=== PATIENT | female | born 1970 | race Caucasian/White ===

== ENCOUNTER 2017-09-29 08:07 | Emergency (ER) | payer SELFPAY ==
[2017-09-29] MEDS ORDERED: ASPIRIN 81 MG TABLET, CHEWABLE PO ONE (08:47)
[2017-09-29] MEDS ORDERED: CLONIDINE HCL 0.2 MG TABLET PO ONE (08:48)
--- NOTE | 2017-09-29 08:52 | ER Document Report ---
ED General - General Chief Complaint: Neck Problem Stated Complaint: NECK PAIN Time Seen by Provider: 09/29/17 08:42 TRAVEL OUTSIDE OF THE [place] IN LAST 30 DAYS: No - HPI Notes: 47 years old female with a history of high blood pressure, not been taking any medications presents today with left-sided chest wall pain as well as left- sided neck pain for the last 2 days. This morning the pain was more than usual therefore came to the ED. Denies any left arm numbness tingling sensation nausea vomiting palpitation or diaphoresis. Change of position and movement of the neck increases the pain. - Related Data Allergies/Adverse Reactions: codeine Allergy (Verified 09/29/17 08:10) Home Medications: Current Home Medications Lorazepam [Ativan 0.5 mg Tablet] 0.5 mg PO Q4 PRN 09/29/17 [History] Mv-Min/Iron/Folic/Calcium/Vitk [Women's Daily Formula Tablet] 1 each PO DAILY [History] Past Medical History - General Information source: Patient - Social History Smoking Status: Current Every Day Smoker Frequency of alcohol use: Social Drug Abuse: None Lives with: Family Family History: Reviewed & Not Pertinent - Past Medical History Cardiac Medical History: Reports: None Denies: Hx Atrial Fibrillation, Hx Congestive Heart Failure, Hx Coronary Artery Disease, Hx DVT, Hx Heart Attack, Hx Hypercholesterolemia, Hx Hypertension, Hx Peripheral Vascular Disease, Hx Pulmonary Embolism, Hx Heart Murmur, Other Pulmonary Medical History: Reports: None Denies: Hx Asthma, Hx Bronchitis, Hx COPD, Hx Pneumonia, Hx Intubation, Hx Respiratory Failure, Hx Sleep Apnea, Hx Tuberculosis, Other EENT Medical History: Reports: None Denies: Eyes, Ears, Nose, Throat, Other Neurological Medical History: Reports: None. Denies: Hx Cerebrovascular Accident, Hx Migraine, Hx Seizures, Other Endocrine Medical History: Reports: None. Denies: Hx Diabetes Mellitus Type 1, Hx Diabetes Mellitus Type 2, Hx Graves' Disease, Hx Hyperthyroidism, Hx Hypothyroidism, Other Renal/ Medical History: Reports: None. Denies: Hx Ectopic , Hx End Stage Renal Disease, Hx Hemodialysis, Hx Hydrocele, Hx Kidney Stones, Hx Ovarian Cysts, Hx Peritoneal Dialysis, Hx Pelvic Inflammatory Disease, Hx Renal Insufficiency, Hx Varicocele, Other Review of Systems - Review of Systems Notes: REVIEW OF SYSTEMS: CONSTITUTIONAL : Denies fever, chills, or sweats. Denies recent illness. EENT: Denies eye, ear, throat, or mouth pain or symptoms. Denies nasal or sinus congestion or discharge. Denies throat, tongue, or mouth swelling or difficulty swallowing. CARDIOVASCULAR: Denies chest pain. Denies palpitations or racing or irregular heart beat. Denies ankle edema. RESPIRATORY: Denies cough, cold, or chest congestion. Denies shortness of breath, difficulty breathing, or wheezing. GASTROINTESTINAL: Denies abdominal pain or distention. Denies nausea, vomiting , or diarrhea. Denies blood in vomitus, stools, or per rectum. Denies black, tarry stools. Denies constipation. GENITOURINARY: Denies difficulty urinating, painful urination, burning, frequency, blood in urine, or discharge. FEMALE GENITOURINARY: Denies vaginal bleeding, heavy or abnormal periods, irregular periods. Denies vaginal discharge or odor. MUSCULOSKELETAL: As per history of complain SKIN: Denies rash, lesions or sores. HEMATOLOGIC : Denies easy bruising or bleeding. LYMPHATIC: Denies swollen, enlarged glands. NEUROLOGICAL: Denies confusion or altered mental status. Denies passing out or loss of consciousness. Denies dizziness or lightheadedness. Denies headache. Denies weakness or paralysis or loss of use of either side. Denies problems with gait or speech. Denies sensory loss, numbness, or tingling. Denies seizures. PSYCHIATRIC: Denies anxiety or stress. Denies depression, suicidal ideation, or homicidal ideation. ALL OTHER SYSTEMS REVIEWED AND NEGATIVE. PHYSICAL EXAMINATION: GENERAL: Well-appearing, well-nourished and in no acute distress. HEAD: Atraumatic, normocephalic. EYES: Pupils equal round and reactive to light, extraocular movements intact, conjunctiva are normal. ENT: Nares patent, oropharynx clear without exudates. Moist mucous membranes. NECK: Normal range of motion, supple without lymphadenopathy LUNGS: Breath sounds clear to auscultation bilaterally and equal. No wheezes rales or rhonchi. HEART: Regular rate and rhythm without murmurs ABDOMEN: Soft, nontender, nondistended abdomen. No guarding, no rebound. No masses appreciated. Female : deferred Musculoskeletal: Chest wall tenderness noted .normal range of motion, no pitting or edema. No cyanosis. NEUROLOGICAL: Cranial nerves grossly intact. Normal speech, normal gait. Normal sensory, motor exams PSYCH: Normal mood, normal affect. SKIN: Warm, Dry, normal turgor, no rashes or lesions noted. Dictation was performed using [employer] voice recognition software Physical Exam - Vital signs Vitals: Temp Pulse Resp BP Pulse Ox 98.2 F 66 16 217/116 H 100 09/29/17 08:19 09/29/17 08:19 09/29/17 08:19 09/29/17 08:19 09/29/17 08:19 Course - Vital Signs Vital signs: Temp Pulse Resp BP Pulse Ox 98.2 F 66 16 217/116 H 100 09/29/17 08:19 09/29/17 08:19 09/29/17 08:19 09/29/17 08:19 09/29/17 09:00 - Laboratory Result Diagrams: 09/29/17 08:56 09/29/17 08:56 - Diagnostic Test Radiology results interpreted by me: 09/29/17 10:08 Diagnostic report text EXAM DESCRIPTION: CHEST SINGLE VIEW COMPLETED DATE/TIME: 09/29/2017 9:16 am REASON FOR STUDY: Chest pain COMPARISON: None. EXAM PARAMETERS: NUMBER OF VIEWS: One view. TECHNIQUE: Single frontal radiographic view of the chest acquired. RADIATION DOSE: NA LIMITATIONS: None. FINDINGS: LUNGS AND PLEURA: No opacities, masses or pneumothorax. No pleural effusion. MEDIASTINUM AND HILAR STRUCTURES: No masses. Contour normal. HEART AND VASCULAR STRUCTURES: Heart normal in size. Normal vasculature. BONES: No acute findings. HARDWARE: None in the chest. OTHER: No other significant finding. IMPRESSION: NO ACUTE RADIOGRAPHIC FINDING IN THE CHEST. TECHNICAL DOCUMENTATION: JOB ID: [id number]- All Rights Reserved Dictated by: LILLIAN HARDY MD 6 - EKG Interpretation by Nm EKG shows normal: Sinus rhythm Rate: Normal Rhythm: NSR Additional EKG results interpreted by me: 09/29/17 10:09 Sinus rhythm at 70 60 bpm left axis, no acute ST elevation ST depression T-wave inversion noted. Discharge - Discharge Clinical Impression: Anterior chest wall pain Acute neck sprain Qualifiers: Encounter type: initial encounter Qualified Code(s): S13.9XXA - Sprain of joints and ligaments of unspecified parts of neck, initial encounter Hypertension Qualifiers: Hypertension type: essential hypertension Qualified Code(s): I10 - Essential ( primary) hypertension Disposition: HOME, SELF-CARE Instructions: Chest Wall Pain ([facility]), Aspirin (Cardiac) ([facility]) Prescriptions: Diclofenac Sodium 50 mg PO BID #30 tablet. Lisinopril/Hydrochlorothiazide [Lisinopril-Hctz 10-12.5 mg Tab] 1 each PO DAILY #30 tablet Lorazepam 1 mg PO BID #10 tablet Referrals: [facility] [Provider Group] - Follow up as needed
[2017-09-29 09:15] LABS: ABSOLUTE EOSINOPHILS # (AUTO) 0.1 10^3/uL (0.0-0.6); ABSOLUTE MONOCYTES (AUTO) 0.7 10^3/uL (0.1-1.4); ABSOLUTE NEUT (AUTO) 4.9 10^3/uL (1.7-8.2); BASOPHILS % (AUTO) 0.3 % (0-2); HEMOGLOBIN 15.1 g/dL (12.0-15.5); HGB HCT DIFFERENCE 2.3; LYMPHOCYTES % (AUTO) 15.1 % (13-45); MEAN CORPUSCULAR HEMOGLOBIN 32.1 pg (27.0-33.4); MEAN CORPUSCULAR VOLUME 92 fl (80-97); RED BLOOD COUNT 4.69 10^6/uL (3.72-5.28); RED CELL DISTRIBUTION WIDTH 12.8 % (11.5-14.0); SEGMENTED NEUTROPHILS % (AUTO) 73.6 % (42-78); WHITE BLOOD COUNT 6.7 10^3/uL (4.0-10.5)
--- NOTE | 2017-09-29 09:25 | RADIOLOGY REPORT (SQ) ---
EXAM DESCRIPTION: CHEST SINGLE VIEW COMPLETED DATE/TIME: 09/29/2017 9:16 am REASON FOR STUDY: Chest pain COMPARISON: None. EXAM PARAMETERS: NUMBER OF VIEWS: One view. TECHNIQUE: Single frontal radiographic view of the chest acquired. RADIATION DOSE: NA LIMITATIONS: None. FINDINGS: LUNGS AND PLEURA: No opacities, masses or pneumothorax. No pleural effusion. MEDIASTINUM AND HILAR STRUCTURES: No masses. Contour normal. HEART AND VASCULAR STRUCTURES: Heart normal in size. Normal vasculature. BONES: No acute findings. HARDWARE: None in the chest. OTHER: No other significant finding. IMPRESSION: NO ACUTE RADIOGRAPHIC FINDING IN THE CHEST. TECHNICAL DOCUMENTATION: JOB ID: [id number] [employer]- All Rights Reserved
[2017-09-29 09:38] LABS: ALANINE AMINOTRANSFERASE 31 U/L (9-52); ALBUMIN 4.4 g/dL (3.5-5.0); ALKALINE PHOSPHATASE 67 U/L (38-126); ANION GAP 12 (5-19); ASPARTATE AMINO TRANSFERASE 34 U/L (14-36); BILIRUBIN,DIRECT 0.4 mg/dL (0.0-0.4); BILIRUBIN,TOTAL 0.6 mg/dL (0.2-1.3); BLOOD UREA NITROGEN 12 mg/dL (7-20); CALCIUM 9.5 mg/dL (8.4-10.2); CARBON DIOXIDE 25 mmol/L (22-30); CHLORIDE 105 mmol/L (98-107); CREATINE KINASE 30 U/L (30-135); CREATININE RESULT 0.76 mg/dL (0.52-1.25); GLUCOSE 90 mg/dL (75-110); POTASSIUM 4.2 mmol/L (3.6-5.0); SODIUM 141.9 mmol/L (137-145); TOTAL PROTEIN 7.9 g/dL (6.3-8.2)
[2017-09-29 09:47] LABS: CREATINE KINASE MB 0.43 ng/mL (<4.55)
[2017-09-29 09:49] LABS: TROPONIN I < 0.012 ng/mL
[2017-09-29 10:37] VITALS: BP 141/95
--- NOTE | 2017-09-29 11:20 | EKG REPORT ---
SEVERITY:- ABNORMAL ECG - SINUS RHYTHM LVH BY VOLTAGE CONSIDER ANTEROSEPTAL INFARCT : Confirmed by: Wilton Silveira 29-Sep-2017 11:19:39
== END 2017-09-29 10:36 | disposition home or self-care (01) ==
LOC: ER 08:07
DX: S13.9XXA Sprain of joints and ligaments of unspecified parts of neck, initial encounter (principal); R07.89 Other chest pain; M54.2 Cervicalgia; X58.XXXA Exposure to other specified factors, initial encounter; F17.200 Nicotine dependence, unspecified, uncomplicated; Z88.6 Allergy status to analgesic agent
CPT/HCPCS: 36415; 71010; 80053; 82550; 82553; 84484; 85025; 93005; 93010; 99284

== ENCOUNTER 2017-11-05 12:03 | Emergency (ER) | payer SELFPAY ==
[2017-11-05] MEDS ORDERED: ALBUTEROL SULFATE 0.083% NEB 2.5 MG/3 ML AMPUL NEB ONE (13:12)
--- NOTE | 2017-11-05 14:02 | RADIOLOGY REPORT (SQ) ---
EXAM DESCRIPTION: CHEST PA/LAT COMPLETED DATE/TIME: 11/05/2017 1:48 pm REASON FOR STUDY: cough, congestion COMPARISON: Chest x-ray 09/29/2017. EXAM PARAMETERS: NUMBER OF VIEWS: two views TECHNIQUE: Digital Frontal and Lateral radiographic views of the chest acquired. RADIATION DOSE: NA LIMITATIONS: none FINDINGS: LUNGS AND PLEURA: No consolidation, pneumothorax or pleural effusion. MEDIASTINUM AND HILAR STRUCTURES: No masses or contour abnormalities. HEART AND VASCULAR STRUCTURES: Heart normal size. No evidence for failure. BONES: Mild multilevel degenerative changes in the spine. HARDWARE: None in the chest. IMPRESSION: No acute radiographic finding in the chest. TECHNICAL DOCUMENTATION: JOB ID: [id number] 2010 [employer]- All Rights Reserved
[2017-11-05] MEDS ORDERED: PREDNISONE 20 MG TABLET PO ONE (14:19)
--- NOTE | 2017-11-05 14:22 | ER Document Report ---
HPI - HPI Patient complains to provider of: congestion, cough, aches ?Flu or pneumonia Onset: Other - 6 days Onset/Duration: Gradual, Persistent Pain Level: 3 Context: 47 yo female with cough, congestion, bodyaches, fatique for 6 days. used to take htn meds prescribed from ER, quit smoking 1 week ago. No chest pain or shortness of breath. Associated Symptoms: None Exacerbated by: Denies Relieved by: Denies Similar symptoms previously: Yes Recently seen / treated by doctor: No - ROS ROS below otherwise negative: Yes Systems Reviewed and Negative: Yes All other systems reviewed and negative - RESPIRATORY Respiratory: REPORTS: Coughing Past Medical History - General Information source: Patient - Social History Smoking Status: Former Smoker Chew tobacco use (# tins/day): No Frequency of alcohol use: None Drug Abuse: None Lives with: Spouse/Significant other Family History: Reviewed & Not Pertinent Patient has suicidal ideation: No Patient has homicidal ideation: No Pulmonary Medical History: Reports: Hx Bronchitis Surgical Hx: Negative Past Surgical History: Reports: Hx Neurologic Surgery - craniotomy for aneurysm Vertical Provider Document - CONSTITUTIONAL Agree With Documented VS: Yes Exam Limitations: No Limitations General Appearance: No Apparent Distress - INFECTION CONTROL TRAVEL OUTSIDE OF THE [place] IN LAST 30 DAYS: No - HEENT HEENT: Pharyngeal Erythema. negative: Conjuctival Injection, Tympanic Membrane Red - NECK Neck: Supple. negative: Lymphadenopathy-Left, Lymphadenopathy-Right - RESPIRATORY Respiratory: No Respiratory Distress, Wheezing - insp wheeze on the right-mild O2 Sat by Pulse Oximetry: 99 - CARDIOVASCULAR Cardiovascular: Regular Rate, Regular Rhythm - GI/ABDOMEN Gastrointestinal: Abdomen Soft, Abdomen Non-Tender, No Organomegaly - MUSCULOSKELETAL/EXTREMETIES Musculoskeletal/Extremeties: ALINA DANIELLE - NEURO Level of Consciousness: Awake, Alert, Appropriate - DERM Integumentary: Warm, Dry, No Rash Course - Re-evaluation Re-evalutation: 11/05/17 14:17 faint insp wheeze persists but moving air better. chest xray negative. Will prescribe alb. MDI and steroids, and encouraged her to stay off the tobacco. - Vital Signs Vital signs: Temp Pulse Resp BP Pulse Ox 97.9 F 68 20 159/101 H 99 11/05/17 12:12 11/05/17 12:12 11/05/17 12:12 11/05/17 12:12 11/05/17 12:12 Discharge - Discharge Clinical Impression: Bronchitis Hypertension Qualifiers: Hypertension type: unspecified Qualified Code(s): I10 - Essential (primary) hypertension Condition: Good Disposition: HOME, SELF-CARE Instructions: Bronchitis With Bronchospasm (Wheezing) ([facility]), Family Physicians / Practices, Inhaled Bronchodilators ([facility]), Steroid Medication Additional Instructions: plenty of fluids rest to er if worse see family practice doctor for blood pressure medications Prescriptions: Albuterol Sulfate [Proair HFA Inhalation Aerosol 8.5 gm MDI] 2 puff IH Q3HP PRN #1 hfa.aer.ad PRN Reason: Prednisone [Deltasone 20 mg Tablet] 40 mg PO DAILY #8 tablet Forms: Return to Work
[2017-11-05 14:40] VITALS: BP 153/96
== END 2017-11-05 14:35 | disposition home or self-care (01) ==
LOC: ER 12:03
DX: J40 Bronchitis, not specified as acute or chronic (principal); I10 Essential (primary) hypertension; Z87.891 Personal history of nicotine dependence
CPT/HCPCS: 94640; 99283; 71046; J7512

== ENCOUNTER → 2018-03-05 | Outpatient (CLI) | payer OTHER ==
--- NOTE | 2018-03-06 08:40 | RADIOLOGY REPORT (SQ) ---
EXAM DESCRIPTION: CTA HEAD COMPLETED DATE/TIME: 03/05/2018 3:14 pm REASON FOR STUDY: HEADACHE/ANEURYSM R51 HEADACHE patient had an aneurysm clips 2-1/2 years ago. De crease in visual acuity, increasing headaches sister has cerebral aneurysms COMPARISON: None available TECHNIQUE: Post IV contrast scanning, thin section axial imaging through the brain to evaluate the a rterial structures. Source and MIP images are saved and reviewed on PACS. Advanced 3D imaging as volume-rendering, MIPs, SSD performed? yes All CT scanners at this facility use dose modulation, iterative reconstruction, and/or weight based d osing when appropriate to reduce radiation dose to as low as reasonably achievable (ALARA). [facility]: Dose Right [facility]: CareDose [facility]: Dose Right [facility]: Teradose 4D [facility]: VoloMedia CONTRAST TYPE AND DOSE: 80 mL of IV Isovue 370- low osmolar. RENAL FUNCTION: Creatinine 0.6 LIMITATIONS: None. FINDINGS: [place]: The anterior, middle, posterior cerebral arteries are all patent. No fo ayleen stenosis. There are 3 aneurysm clips along the right carotid terminus. No enhancing saccular an eurysm adjacent to the clips. No aneurysm is identified along the right or left carotid terminus, bi lateral middle or anterior cerebral arteries or bilateral posterior communicating arteries. Anterior communicating artery is unremarkable. POSTERIOR CIRCULATION: The distal vertebral arteries are patent as is the basilar artery. There is m ild fullness at the basilar tip without a discrete aneurysm. No evidence of vertebral dissection or posterior circulation aneurysm. BRAIN: Uncontrasted CT brain imaging demonstrates an old right temporal craniotomy with 3D aneurysm c lips along the right carotid terminus. No CT evidence of acute ischemic change, acute intracranial h emorrhage, mass effect, or midline shift. Normal ventricles and extra-axial CSF spaces. Post contrasted images demonstrate no abnormal brain parenchymal enhancement. No [place] an eurysm is identified. No right posterior communicating artery region aneurysm. No basilar tip aneur ysm. BONES: Old right temporal craniotomy SINUSES: No fluid or mucosal thickening. OTHER: There is opacification of the bilateral mastoid air cells and a small right middle ear effusio n IMPRESSION: No recurrent aneurysm identified along the right carotid terminus. Remainder of the CT angio is otherwise unremarkable aside from an old right temporal craniotomy and a neurysm clips along the right carotid terminus. TECHNICAL DOCUMENTATION: JOB ID: [id number] Quality ID # [id number]: Final reports with documentation of one or more dose reduction techniques (e.g., Au tomated exposure control, adjustment of the mA and/or kV according to patient size, use of iterative reconstruction technique) 2010 [employer]- All Rights Reserved Reading location - IP/workstation name: [email or web address]
== END ==
LOC: RAD 14:12
PROVIDERS: ATTEND Internal Medicine
DX: R51 Headache (principal)
CPT/HCPCS: 70496; 82565

== ENCOUNTER 2018-12-14 18:22 | Emergency (ER) | payer OTHER ==
[2018-12-14 18:49] VITALS: BP 146/102
--- NOTE | 2018-12-14 19:13 | ER Document Report ---
ED Medical Screen (RME) - General Chief Complaint: Chest Pain Stated Complaint: CHEST PAIN Time Seen by Provider: 12/14/18 19:08 Primary Care Provider: MARIELOS LONG MD [Primary Care Provider] - Follow up as needed Notes: Patient is a 48-year-old female with history of hypertension that presents to the emergency department for chief complaint of chest pain. Pain is been present for about 4 days now, seemingly constant over the last 2 days, not better or worse with exertion, family history of heart disease. ROS: Other than noted above, the 12 point review of systems was reviewed with the patient and were negative, all pertinent findings are included in the HPI. PHYSICAL EXAMINATION: Vital signs reviewed. GENERAL: Well-appearing, well-nourished and in no acute distress. HEAD: Atraumatic, normocephalic. EYES: Pupils equal round extraocular movements intact, conjunctiva are normal. ENT: Nares patent NECK: Normal range of motion CV: Heart regular rate and rhythm LUNGS: No respiratory distress Musculoskeletal: Normal range of motion NEUROLOGICAL: Normal speech PSYCH: Normal mood, normal affect. MDM: Patient seen and examined for rapid initial assessment. Vital signs reviewed. A comprehensive ED assessment and evaluation of the patient, analysis of test results and completion of the medical decision making process will be conducted by additional ED providers. *Note is created using voice recognition software and may contain spelling, syntax or grammatical errors. TRAVEL OUTSIDE OF THE [place] IN LAST 30 DAYS: No - Related Data Allergies/Adverse Reactions: codeine Allergy (Verified 11/05/17 12:06) Past Medical History - Past Medical History Cardiac Medical History: Denies: Hx Atrial Fibrillation, Hx Congestive Heart Failure, Hx Coronary Artery Disease, Hx DVT, Hx Heart Attack, Hx Hypercholesterolemia, Hx Hypertension, Hx Peripheral Vascular Disease, Hx Pulmonary Embolism, Hx Heart Murmur Pulmonary Medical History: Reports: Hx Bronchitis Denies: Hx Asthma, Hx COPD, Hx Pneumonia, Hx Intubation, Hx Respiratory Failure, Hx Sleep Apnea, Hx Tuberculosis Neurological Medical History: Denies: Hx Cerebrovascular Accident, Hx Migraine, Hx Seizures Endocrine Medical History: Denies: Hx Diabetes Mellitus Type 1, Hx Diabetes Mellitus Type 2, Hx Graves' Disease, Hx Hyperthyroidism, Hx Hypothyroidism Renal/ Medical History: Denies: Hx Ectopic , Hx End Stage Renal Disease, Hx Hemodialysis, Hx Hydrocele, Hx Kidney Stones, Hx Ovarian Cysts, Hx Peritoneal Dialysis, Hx Pelvic Inflammatory Disease, Hx Renal Insufficiency, Hx Varicocele Past Surgical History: Reports: Hx Neurologic Surgery - craniotomy for aneurysm Physical Exam - Vital signs Vitals: Temp Pulse Resp BP Pulse Ox 99.1 F 64 16 146/102 H 98 12/14/18 18:47 12/14/18 18:47 12/14/18 18:47 12/14/18 18:47 12/14/18 18:47 Course - Vital Signs Vital signs: Temp Pulse Resp BP Pulse Ox 99.1 F 64 16 146/102 H 98 12/14/18 18:47 12/14/18 18:47 12/14/18 18:47 12/14/18 18:47 12/14/18 18:47 Doctor's Discharge - Discharge Referrals: MARIELOS LONG MD [Primary Care Provider] - Follow up as needed
--- NOTE | 2018-12-14 19:27 | EKG REPORT ---
SEVERITY:- ABNORMAL ECG - SINUS RHYTHM PROBABLE ANTEROSEPTAL INFARCT, AGE INDETERM : Confirmed by: Randy Solis MD 14-Dec-2018 19:26:38
[2018-12-14 19:47] LABS: ABSOLUTE EOSINOPHILS # (AUTO) 0.2 10^3/uL (0.0-0.6); ABSOLUTE LYMPHOCYTES (AUTO) 1.8 10^3/uL (0.5-4.7); ABSOLUTE MONOCYTES (AUTO) 0.8 10^3/uL (0.1-1.4); ABSOLUTE NEUT (AUTO) 4.1 10^3/uL (1.7-8.2); BASOPHILS % (AUTO) 0.5 % (0-2); EOSINOPHILS % (AUTO) 2.2 % (0-6); HEMATOCRIT 42.2 % (36.0-47.0); HEMOGLOBIN 14.7 g/dL (12.0-15.5); LYMPHOCYTES % (AUTO) 26.2 % (13-45); MEAN CORPUSCULAR HEMOGLOBIN 31.6 pg (27.0-33.4); MEAN CORPUSCULAR HGB CONC 34.8 g/dL (32.0-36.0); MEAN CORPUSCULAR VOLUME 91 fl (80-97); MONOCYTES % (AUTO) 11.1 % (3-13); PLATELET COUNT 175 10^3/uL (150-450); RED BLOOD COUNT 4.66 10^6/uL (3.72-5.28); RED CELL DISTRIBUTION WIDTH 12.5 % (11.5-14.0); TOTAL CELLS COUNTED % (AUTO) 100 %; WHITE BLOOD COUNT 6.8 10^3/uL (4.0-10.5)
--- NOTE | 2018-12-14 19:48 | RADIOLOGY REPORT (SQ) ---
EXAM DESCRIPTION: CHEST SINGLE VIEW COMPLETED DATE/TIME: 12/14/2018 7:23 pm REASON FOR STUDY: chest pain COMPARISON: 11/05/2017 TECHNIQUE: Single frontal radiographic view of the chest acquired. NUMBER OF VIEWS: One view. LIMITATIONS: None. FINDINGS: LUNGS AND PLEURA: No pneumothorax. No consolidation or pleural effusion. MEDIASTINUM AND HILAR STRUCTURES: Stable. HEART AND VASCULAR STRUCTURES: Stable. BONES: No acute findings. HARDWARE: None in the chest. OTHER: No other significant finding. IMPRESSION: NO ACUTE FINDINGS. TECHNICAL DOCUMENTATION: JOB ID: [id number] 2010 [employer]- All Rights Reserved Reading location - IP/workstation name: [email or web address]
[2018-12-14 20:03] LABS: ALANINE AMINOTRANSFERASE 32 U/L (9-52); ALBUMIN 4.8 g/dL (3.5-5.0); ALKALINE PHOSPHATASE 81 U/L (38-126); ANION GAP 11 (5-19); ASPARTATE AMINO TRANSFERASE 39 U/L (14-36); BILIRUBIN,DIRECT 0.3 mg/dL (0.0-0.4); BILIRUBIN,TOTAL 0.3 mg/dL (0.2-1.3); BLOOD UREA NITROGEN 20 mg/dL (7-20); CALCIUM 10.4 mg/dL (8.4-10.2); CARBON DIOXIDE 25 mmol/L (22-30); CHLORIDE 104 mmol/L (98-107); GLUCOSE 87 mg/dL (75-110); POTASSIUM 3.9 mmol/L (3.6-5.0); SODIUM 139.7 mmol/L (137-145); TOTAL PROTEIN 8.3 g/dL (6.3-8.2)
[2018-12-14] MEDS ORDERED: FAMOTIDINE 20 MG TABLET PO ONE (23:09)
[2018-12-14] MEDS ORDERED: MAG HYDROX/AL HYDROX/SIMETH SUSP 30 ML UDCUP PO ONE (23:09)
[2018-12-14] MEDS ORDERED: LIDOCAINE 2% VISCOUS SOLN 20 ML UDCUP PO ONE (23:09)
[2018-12-14] MEDS ORDERED: METOCLOPRAMIDE HCL ORAL SOLN 10 MG/10 ML UDCUP PO ONE (23:09)
--- NOTE | 2018-12-14 23:11 | ER Document Report ---
ED General - General Chief Complaint: Chest Pain Stated Complaint: CHEST PAIN Time Seen by Provider: 12/14/18 19:08 Primary Care Provider: MARIELOS LONG MD [Primary Care Provider] - Follow up in 3-5 days Notes: Patient is a 48-year-old female with a past medical history of essential hypertension, tobacco dependence, presents with 4 days of chest pressure with intermittent shortness of breath. Describes the pain in her chest as being a constant, pressure-like sensation. Notes intermittent associated feelings of reflux or stabbing pain in her throat and chest. States that nothing seems to improve or worsen her symptoms. Symptoms have been overall unchanged since onset. Denies a history of similar symptoms prior to the past 4 days. She denies any cardiac history, history of DVT or pulmonary embolus. She does not use any form of control. She has not seen her primary care physician regarding today's concerns. No hemoptysis. TRAVEL OUTSIDE OF THE [place] IN LAST 30 DAYS: No - Related Data Allergies/Adverse Reactions: codeine Allergy (Verified 11/05/17 12:06) Past Medical History - General Information source: Patient - Social History Smoking Status: Current Every Day Smoker Cigarette use (# per day): Yes - 1 pack/day Smoking Education Provided: Yes - Smoking cessation counseling was provided for 4 minutes at the bedside Frequency of alcohol use: Occasional Drug Abuse: None Lives with: Spouse/Significant other Family History: Reviewed & Not Pertinent Patient has suicidal ideation: No Patient has homicidal ideation: No - Past Medical History Cardiac Medical History: Denies: Hx Atrial Fibrillation, Hx Congestive Heart Failure, Hx Coronary Artery Disease, Hx DVT, Hx Heart Attack, Hx Hypercholesterolemia, Hx Hypertension, Hx Peripheral Vascular Disease, Hx Pulmonary Embolism, Hx Heart Murmur Pulmonary Medical History: Reports: Hx Bronchitis Denies: Hx Asthma, Hx COPD, Hx Pneumonia, Hx Intubation, Hx Respiratory Failure, Hx Sleep Apnea, Hx Tuberculosis Neurological Medical History: Denies: Hx Cerebrovascular Accident, Hx Migraine, Hx Seizures Endocrine Medical History: Denies: Hx Diabetes Mellitus Type 1, Hx Diabetes Mellitus Type 2, Hx Graves' Disease, Hx Hyperthyroidism, Hx Hypothyroidism Renal/ Medical History: Denies: Hx Ectopic , Hx End Stage Renal Disease, Hx Hemodialysis, Hx Hydrocele, Hx Kidney Stones, Hx Ovarian Cysts, Hx Peritoneal Dialysis, Hx Pelvic Inflammatory Disease, Hx Renal Insufficiency, Hx Varicocele Past Surgical History: Reports: Hx Neurologic Surgery - craniotomy for aneurysm Review of Systems - Review of Systems Notes: Constitutional: Negative for fever. HENT: Negative for sore throat. Eyes: Negative for visual changes. Cardiovascular: Positive for chest pain. Respiratory: Positive for shortness of breath. Gastrointestinal: Negative for abdominal pain, vomiting or diarrhea. Genitourinary: Negative for dysuria. Musculoskeletal: Negative for back pain. Skin: Negative for rash. Neurological: Negative for headaches, weakness or numbness. 10 point ROS negative except as marked above and in HPI. Physical Exam - Vital signs Vitals: Temp Pulse Resp BP Pulse Ox 99.1 F 64 16 146/102 H 98 12/14/18 18:47 12/14/18 18:47 12/14/18 18:47 12/14/18 18:47 12/14/18 18:47 Interpretation: Hypertensive Notes: PHYSICAL EXAMINATION: GENERAL: Well-appearing, well-nourished and in no acute distress. HEAD: Atraumatic, normocephalic. EYES: Pupils equal round and reactive to light, extraocular movements intact, sclera anicteric, conjunctiva are normal. ENT: nares patent, oropharynx clear without exudates. Moist mucous membranes. NECK: Normal range of motion, supple without lymphadenopathy LUNGS: Breath sounds clear to auscultation bilaterally and equal. No wheezes rales or rhonchi. HEART: Regular rate and rhythm without murmurs ABDOMEN: Soft, nontender, normoactive bowel sounds. No guarding, no rebound. No masses appreciated. EXTREMITIES: Normal range of motion, no pitting or edema. No cyanosis. NEUROLOGICAL: No focal neurological deficits. Moves all extremities spontaneously and on command. PSYCH: Normal mood, normal affect. SKIN: Warm, Dry, normal turgor, no rashes or lesions noted. Course - Re-evaluation Re-evalutation: 12/14/18 23:08 Presentation of chest pain in an otherwise well appearing patient. Low clinical suspicion for ACS given clinical history, exam, EKG without ST elevations or depressions, and negative initial troponin. HEART score less than or equal to 3. PE also seems unlikely given clinical history, absence of tachycardia or dyspnea. Patient is PERC criteria negative. CXR without evidence of pneumothorax or pneumonia. No widened mediastinum. Aortic dissection also seems unlikely given history, symmetric pulses, CXR, and vitals. Repeat troponin negative. Arash uribe has symptoms for greater than 4 days, do not suspect any life-threatening origin given duration of symptoms. Patient has had significant associated reflux symptoms and suspect it is just there may be an underlying component of reflux or esophageal spasms. Overall assessment: Chest pain in a patient without evidence of cardiac or other serious etiology on workup today. I discussed with patient that, based on their age, risk factors and emergency department testing today, the likelihood that their symptoms are related to a heart attack is very low (estimated risk of heart attack or over the next 30 days of less than 1%). The patient demonstrates decision making capacity and has verbalized an understanding of these risks to me. Based on this, the patient has chosen to follow-up as an outpatient. Usual chest pain return precautions reviewed. The patient states understanding and agreement with this plan. - Vital Signs Vital signs: Temp Pulse Resp BP Pulse Ox 99.1 F 64 16 146/102 H 98 12/14/18 18:47 12/14/18 18:47 12/14/18 18:47 12/14/18 18:47 12/14/18 18:47 - Laboratory Result Diagrams: 12/14/18 19:32 12/14/18 19:32 Laboratory results interpreted by me: 12/14/18 19:32 Calcium 10.4 H AST 39 H Total Protein 8.3 H - Diagnostic Test Radiology reviewed: Image reviewed, Reports reviewed Radiology results interpreted by me: 12/14/18 23:08 Chest x-ray: No acute infiltrate or pneumothorax - EKG Interpretation by Me Additional EKG results interpreted by me: 12/14/18 23:09 Sinus rhythm, rate 63. No ST elevations or depressions. QTC 431. Discharge - Discharge Clinical Impression: Tobacco dependence Chest pain Qualifiers: Chest pain type: unspecified Qualified Code(s): R07.9 - Chest pain, unspecified Gastroesophageal reflux Qualifiers: Esophagitis presence: esophagitis presence not specified Qualified Code(s): K21.9 - Gastro-esophageal reflux disease without esophagitis Condition: Good Disposition: HOME, SELF-CARE Additional Instructions: You were seen today for chest pain. The exact cause of your pain is unclear but may be related to gastroesophageal reflux. Based on your cardiac enzyme testing, chest x-ray, and EKG it does not appear that it is from an immediately life- threatening cause at this time. Although your testing here is normal is critical that you follow-up with your primary care physician for continued evaluation of this chest pain. Please return to emergency department immediat oniel if you have worsening of your chest pain, shortness of breath, vomiting, become unable to exert yourself due to pain or difficulty breathing, you pass out, or have any pain that radiates into your arms, jaw, or back. Please also return if you have any additional symptoms that are concerning to you. Please begin taking famotidine 40 mg in the morning and 40 mg at night. Take Carafate prior to meals. You may also take medicine such as Pepto-Bismol or Tums to assist with your pain. As we have discussed, the most important thing is lifestyle changes. You need to avoid smoking, sodas, tea, coffee, alcohol, spicy foods, and acidic foods such as citrus fruits, tomato based products, berries, and most fruit juices. Prescriptions: Famotidine 40 mg PO BID #60 tablet Sucralfate [Carafate 1 gm Tablet] 1 gm PO ACHS #120 tablet Forms: Smoking Cessation Education Referrals: MARIELOS LONG MD [Primary Care Provider] - Follow up in 3-5 days
== END 2018-12-15 00:20 | disposition home or self-care (01) ==
LOC: ER 18:22
DX: R07.9 Chest pain, unspecified (principal); R06.02 Shortness of breath; I10 Essential (primary) hypertension; F17.210 Nicotine dependence, cigarettes, uncomplicated; K21.9 Gastro-esophageal reflux disease without esophagitis
CPT/HCPCS: 93005; 99406; 99285; 36415; 85025; 80053; 84484; 71045; 93010; J3490

== ENCOUNTER → 2019-12-31 | Outpatient (CLI) | payer OTHER ==
--- NOTE | 2019-12-31 17:05 | WOMENS IMAGING REPORT ---
EXAM DESCRIPTION: 3D SCREENING MAMMO BILAT COMPLETED DATE/TIME: 12/31/2019 4:11 pm REASON FOR STUDY: Z12.31 SCREENING MAMMO Z12.31 ENCNTR SCREEN MAMMOGRAM FOR MALIGNANT NEOPLASM OF B RE COMPARISON: Baseline study EXAM PARAMETERS: Views: Standard craniocaudal and mediolateral oblique views of each breast recorded using digital acquisition and breast tomosynthesis. Read with the assistance of CAD. .[facility] - R2 Shuttleless Loom Weaver Version 9.2 LIMITATIONS: None. FINDINGS: No suspicious masses, suspicious calcifications or architectural distortion. No areas of c oncern. IMPRESSION: NEGATIVE MAMMOGRAM. BIRADS 1. BREAST DENSITY: c. The breasts are heterogeneously dense, which may obscure small masses. BIRAD: ASSESSMENT: 1 NEGATIVE RECOMMENDATION: ROUTINE SCREENING Please continue yearly bilateral screening mammography/tomosynthesis in December 2020 COMMENT: The patient has been notified of the results by letter per SA requirements. Additional no tification policies are in place for contacting patient with suspicious or incomplete findings. Quality ID #[id number]: The [employer] recommends an annual screening mammogram for women aged 40 years or over. This facility utilizes a reminder system to ensure that all patients receive reminder letters, and/or direct phone calls for appointments. This includes reminders for routine scr eening mammograms, diagnostic mammograms, or other Breast Imaging Interventions when appropriate. Th is patient will be placed in the appropriate reminder system. TECHNICAL DOCUMENTATION: FINDING NUMBER: (1) ASSESSMENT: (1) JOB ID: [id number] 2010 [employer]- All Rights Reserved Reading location - IP/workstation name: [email or web address]
== END ==
LOC: WI 15:20
PROVIDERS: ATTEND Internal Medicine
DX: Z12.31 Encounter for screening mammogram for malignant neoplasm of breast (principal)
CPT/HCPCS: 77063; 77067